=== PATIENT | female | born 1935 | race Caucasian/White ===

== ENCOUNTER 2017-01-16 18:08 | Emergency (ER) | payer MEDICARE, BC ==
[2017-01-16 20:24] VITALS: BP 128/61
[2017-01-16] MEDS ORDERED: cefTRIAXone 500 MG Vial IM ONE (21:09)
--- NOTE | 2017-01-16 21:19 | EDM.PDOC ---
ED HISTORY OF PRESENT ILLNESS - General Chief Complaint: Fever Stated Complaint: MED VIA AMBULANCE Time Seen by Provider: 01/16/17 18:08 Source: Reports: residential records History Limitations: Reports: No limitations - History of Present Illness INITIAL COMMENTS - FREE TEXT/NARRATIVE: History of present illness: [Patient is here from a retirement with a fever and little bit of a cough. She been started on Zithromax earlier today. She is pleasant and not very communicative. I suspect she has dementia.] Review of systems: As per history of present illness and below otherwise all systems reviewed and negative. Past medical history: As per history of present illness and as reviewed below otherwise noncontributory. Surgical history: As per history of present illness and as reviewed below otherwise noncontributory. Social history: No reported history of drug or alcohol abuse. Family history: As per history of present illness and as reviewed below otherwise noncontributory. Physical exam: HEENT: Atraumatic, normocephalic, pupils reactive, negative for conjunctival pallor or scleral icterus, mucous membranes moist, throat clear, neck supple, nontender, trachea midline. Lungs: Some dry crackles in the bases Heart: S1S2, regular, Abdomen: Soft, nondistended, nontender. Negative for masses or hepatosplenomegaly. Negative for costovertebral tenderness. Pelvis: Stable nontender. Genitourinary: Deferred. Rectal: Deferred. Extremities: Atraumatic, negative for cords or calf pain. Neurovascular unremarkable. Neuro: Awake, alert, Exam nonfocal. Diagnostics: [CBC complete metabolic panel UA lactic acid and CRP were done along with a chest x-ray. Most significant finding was positive UA. She had a slight elevation of her white count but her fever came down while she was here. Influenza A and B. along with rapid strep were negative. Chest x-ray did not demonstrate any clear infiltrates. She may have a borderline failure pattern on chest x-ray but she received fluids in the ambulance in route] Therapeutics: [Rocephin 1 g IM was provided] Impression: [UTI with possible upper tract involvement] Plan: [Cipro will be provided to 50 mg one by mouth daily for 7 days] Definitive disposition and diagnosis as appropriate pending reevaluation and review of above. - Related Data Allergies/ADRs: Allergies Allergy/AdvReac Type Severity Reaction Status Date / Time amoxicillin trihydrate Allergy Nausea Verified 01/16/17 18:52 [From Augmentin] potassium clavulanate Allergy Nausea Verified 01/16/17 18:52 [From Augmentin] Home Meds: Home Meds Donepezil HCl 10 mg PO DAILY 12/30/14 [History] Furosemide 20 mg PO DAILY 12/30/14 [History] Levothyroxine Sodium [Synthroid] 75 mcg PO DAILY 12/30/14 [History] Multivitamin with Minerals [Multiple Vitamin] 1 tab PO DAILY 12/30/14 [History] Simvastatin [Zocor] 40 mg PO DAILY 12/30/14 [History] Acetaminophen [Tylenol] 650 mg PO Q4H 01/16/17 [History] Azithromycin [Azithromycin] 250 mg PO DAILY 01/16/17 [History] Azithromycin [Zithromax] 500 mg PO Q24H 01/16/17 [History] Carboxymethylcell/Glycerin/Pf [Lubricant 0.5-0.9% Eye Drops] 1 each OP 01/16/17 [History] Loratadine [Loratadine] 10 mg PO ASDIRECTED PRN 01/16/17 [History] Magnesium Hydroxide [Milk of Magnesia] 30 ml PO DAILY PRN 01/16/17 [History] Pilocarpine HCl [Pilocarpine HCl] 10 mg PO TID 01/16/17 [History] Potassium Gluconate 99 mg PO 01/16/17 [History] Sennosides [Senna] 2 tab PO BID PRN 01/16/17 [History] Past Medical History HEENT History: Reports: Cataract Cardiovascular History: Reports: High cholesterol, Hypertension Respiratory History: Reports: Pneumonia, recurrent Gastrointestinal History: Reports: GERD 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 ED EXAM, GENERAL - Physical Exam Exam: See Below Course - Vital Signs Last Recorded V/S: Last Vital Signs Temp 37.1 C 01/16/17 20:24 Pulse 73 01/16/17 20:24 Resp 16 01/16/17 20:24 BP 128/61 01/16/17 20:24 Pulse Ox 92 L 01/16/17 20:24 - Orders/Labs/Meds Orders: Active Orders 24 hr Category Date Time Status Chest 1V Frontal [CR] Stat Exams 01/16/17 18:16 Taken CULTURE BLOOD [BC] Stat Lab 01/16/17 18:33 Received CULTURE BLOOD [BC] Stat Lab 01/16/17 18:43 Received CULTURE STREP A CONFIRMATION [RM] Stat Lab 01/16/17 19:12 Results CULTURE URINE [RM] Stat Lab 01/16/17 21:08 Ordered STREP SCRN A RAPID W CULT CONF [RM] Stat Lab 01/16/17 19:12 Results Labs: Laboratory Tests 01/16/17 01/16/17 01/16/17 Range/Units 18:33 18:43 18:43 WBC 13.7 H (4.5-11.0) K/uL RBC 4.55 (3.30-5.50) M/uL Hgb 13.6 (12.0-15.0) g/dL Hct 41.1 (36.0-48.0) % MCV 90 (80-98) fL MCH 30 (27-31) pg MCHC 33 (32-36) % Plt Count 109 L (150-400) K/uL Neut % (Auto) 79 H (36-66) % Lymph % (Auto) 15 L (24-44) % [place] % (Auto) 7 H (2-6) % Eos % (Auto) 0 L (2-4) % Baso % (Auto) 0 (0-1) % ABG Hemoglobin 13.6 (12.0-16.0) g/dL ABG Oxyhemoglobin 80.6 % ABG Carboxyhemoglobin 1.7 H (0.0-1.6) % ABG Methemoglobin 0.5 % VBG pH 7.504 H (7.350-7.450) VBG pCO2 28.9 mm/Hg VBG pO2 44.1 mm/Hg VBG HCO3 22.6 mmol/L VBG Total CO2 19.6 mmol/L VBG O2 Saturation 82.4 VBG O2 Content 15.4 %vol VBG Base Excess 0.8 mm/L O2 Delivery Device Room air Sodium 148 (140-148) mmol/L Potassium 3.4 L (3.6-5.2) mmol/L Chloride 114 H (100-108) mmol/L Carbon Dioxide 24 (21-32) mmol/L Anion Gap 13.4 (5.0-14.0) mmol/L BUN 28 H D (7-18) mg/dL Creatinine 0.9 (0.6-1.0) mg/dL Est Cr Clr Drug Dosing 40.90 mL/min Estimated GFR (MDRD) 60 (>60) Glucose 177 H (74-106) mg/dL Lactic Acid (0.4-2.0) mmol/L Calcium 8.6 (8.5-10.1) mg/dL Total Bilirubin 0.7 (0.2-1.0) mg/dL AST 26 (15-37) U/L ALT 22 (12-78) U/L Alkaline Phosphatase 109 (46-116) U/L C-Reactive Protein 24.14 H (0.0-0.3) mg/dL Total Protein 7.5 (6.4-8.2) g/dL Albumin 2.7 L (3.4-5.0) g/dL Globulin 4.8 H (2.3-3.5) g/dL Albumin/Globulin Ratio 0.6 L (1.2-2.2) TSH, Ultra Sensitive 2.108 (0.358-3.740) uIU/mL Urine Color Urine Appearance Urine pH (4.5-8.0) Ur Specific [place] (1.008-1.030) Urine Protein (NEGATIVE) mg/dL Urine Glucose (UA) (NEGATIVE) mg/dL Urine Ketones (NEGATIVE) mg/dL Urine Occult Blood (NEGATIVE) Urine Nitrite (NEGATIVE) Urine Bilirubin (NEGATIVE) Urine Urobilinogen (NORMAL) mg/dL Ur Leukocyte Esterase (NEGATIVE) Urine RBC (0-5) Urine WBC (0-5) Ur Epithelial Cells Amorphous Sediment Urine Bacteria Urine Mucus 01/16/17 01/16/17 Range/Units 18:43 20:24 WBC (4.5-11.0) K/uL RBC (3.30-5.50) M/uL Hgb (12.0-15.0) g/dL Hct (36.0-48.0) % MCV (80-98) fL MCH (27-31) pg MCHC (32-36) % Plt Count (150-400) K/uL Neut % (Auto) (36-66) % Lymph % (Auto) (24-44) % [place] % (Auto) (2-6) % Eos % (Auto) (2-4) % Baso % (Auto) (0-1) % ABG Hemoglobin (12.0-16.0) g/dL ABG Oxyhemoglobin % ABG Carboxyhemoglobin (0.0-1.6) % ABG Methemoglobin % VBG pH (7.350-7.450) VBG pCO2 mm/Hg VBG pO2 mm/Hg VBG HCO3 mmol/L VBG Total CO2 mmol/L VBG O2 Saturation VBG O2 Content %vol VBG Base Excess mm/L O2 Delivery Device Sodium (140-148) mmol/L Potassium (3.6-5.2) mmol/L Chloride (100-108) mmol/L Carbon Dioxide (21-32) mmol/L Anion Gap (5.0-14.0) mmol/L BUN (7-18) mg/dL Creatinine (0.6-1.0) mg/dL Est Cr Clr Drug Dosing mL/min Estimated GFR (MDRD) (>60) Glucose (74-106) mg/dL Lactic Acid 2.1 H (0.4-2.0) mmol/L Calcium (8.5-10.1) mg/dL Total Bilirubin (0.2-1.0) mg/dL AST (15-37) U/L ALT (12-78) U/L Alkaline Phosphatase (46-116) U/L C-Reactive Protein (0.0-0.3) mg/dL Total Protein (6.4-8.2) g/dL Albumin (3.4-5.0) g/dL Globulin (2.3-3.5) g/dL Albumin/Globulin Ratio (1.2-2.2) TSH, Ultra Sensitive (0.358-3.740) uIU/mL Urine Color Yellow Urine Appearance Clear Urine pH 7.0 (4.5-8.0) Ur Specific [place] 1.015 (1.008-1.030) Urine Protein Negative (NEGATIVE) mg/dL Urine Glucose (UA) Normal (NEGATIVE) mg/dL Urine Ketones Negative (NEGATIVE) mg/dL Urine Occult Blood Negative (NEGATIVE) Urine Nitrite Negative (NEGATIVE) Urine Bilirubin Negative (NEGATIVE) Urine Urobilinogen 1 (NORMAL) mg/dL Ur Leukocyte Esterase Moderate (NEGATIVE) Urine RBC 0-5 (0-5) Urine WBC 40-50 H (0-5) Ur Epithelial Cells Few Amorphous Sediment Few Urine Bacteria Many Urine Mucus Not seen Meds: Medications Discontinued Medications Generic Name Dose Route Start Last Admin Trade Name Freq PRN Reason Stop Dose Admin Ceftriaxone Sodium 1,000 mg 01/16/17 21:09 Rocephin IM 01/16/17 21:10 ONETIME ONE Departure - Departure Time of Disposition: 21:18 Disposition: Home, Self-Care 01 Condition: fair Clinical Impression: UTI (urinary tract infection) Qualifiers: Urinary tract infection type: acute pyelonephritis Qualified Code(s): N10 - Acute pyelonephritis Forms: ED Department Discharge Additional Instructions: Please contact her primary care provider in 2 or 3 days if she's not improving - My Orders Last 24 Hours: My Active Orders 01/16/17 18:16 Chest 1V Frontal [CR] Stat 01/16/17 18:33 CULTURE BLOOD [BC] Stat 01/16/17 18:43 CULTURE BLOOD [BC] Stat 01/16/17 19:12 CULTURE STREP A CONFIRMATION [RM] Stat STREP SCRN A RAPID W CULT CONF [RM] Stat 01/16/17 21:08 CULTURE URINE [RM] Stat - Assessment/Plan Last 24 Hours: My Active Orders 01/16/17 18:16 Chest 1V Frontal [CR] Stat 01/16/17 18:33 CULTURE BLOOD [BC] Stat 01/16/17 18:43 CULTURE BLOOD [BC] Stat 01/16/17 19:12 CULTURE STREP A CONFIRMATION [RM] Stat STREP SCRN A RAPID W CULT CONF [RM] Stat 01/16/17 21:08 CULTURE URINE [RM] Stat
--- NOTE | 2017-01-17 08:48 | CR ---
Chest 1V Frontal HISTORY: cough and fever COMPARISON: 10/30/2015, 12/26/2014 FINDINGS: Lungs appear clear and normally aerated. Slight interstitial prominence is similar to prior exams. C ardiomediastinal silhouette is within normal limits. No vascular redistribution or pleural fluid can be seen. Bony structures are osteopenic. IMPRESSION: No acute chest abnormality or significant interval change is identified.
== END 2017-01-16 21:45 | disposition home or self-care (01) ==
LOC: JP.ED 18:08
DX: N10 Acute pyelonephritis (principal); I10 Essential (primary) hypertension; E78.00 Pure hypercholesterolemia, unspecified; K21.9 Gastro-esophageal reflux disease without esophagitis; E11.9 Type 2 diabetes mellitus without complications; G30.9 Alzheimer's disease, unspecified; Z79.899 Other long term (current) drug therapy; Z88.1 Allergy status to other antibiotic agents
CPT/HCPCS: 36415; 71010; 80053; 81001; 82803; 83605; 84443; 85025; 86140; 87040; 87081; 87086; 87088; 87430; 87804; 96372; 99283; 99285; J0696

== ENCOUNTER 2018-01-09 11:49 | Inpatient (IN) | payer MEDICARE, BC ==
--- NOTE | 2018-01-09 12:04 | EDM.PDOC ---
ED HPI GENERAL MEDICAL PROBLEM - General Chief Complaint: Cardiovascular Problem Stated Complaint: FALL VIA [facility] / [facility] Time Seen by Provider: 01/09/18 11:50 Source of Information: Reports: EMS, Old Records, RN History Limitations: Reports: Other (dementia) - History of Present Illness INITIAL COMMENTS - FREE TEXT/NARRATIVE: 82 yo female was transported via EMS for a fall at her [facility] that was not witnessed. Initially complained of hip pain, but not anymore. Later en route complained of neck pain so a C-collar was applied. Here in the ER she does not remember falling. She has a pHx of significant dementia. EMS noted a normal BS of 140. EMS also noted a HR of about 40. No anticoagulants noted on med list. Old records suggest her normal HR is about 60/min. Onset: Today Onset Date: 01/09/18 Onset Time: 11:00 (estimated fall time) Duration: Minutes:, Constant Location: Reports: Neck (pain reported to EMS), Chest (No chest pain reported, but does have significant bradycardia.) Severity: Moderate Improves with: Reports: None (bradycardia), Movement (neck pain) Worsens with: Reports: Immobilization (neck pain) Associated Symptoms: Reports: Nausea/Vomiting (Emesis x one since fall, denies nausea now in ER. ). Denies: Fever/Chills, Headaches Treatments DRAFTER CASTINGS: Reports: Other (see below) (none) - Related Data Allergies Allergy/AdvReac Type Severity Reaction Status Date / Time amoxicillin trihydrate Allergy Nausea Verified 01/16/17 18:52 [From Augmentin] potassium clavulanate Allergy Nausea Verified 01/16/17 18:52 [From Augmentin] Home Meds: Home Meds Levothyroxine Sodium [Synthroid] 75 mcg PO DAILY 12/30/14 [History] Acetaminophen [Tylenol] 650 mg PO Q4H 01/16/17 [History] Sennosides [Senna] 2 tab PO BID PRN 01/16/17 [History] Past Medical History HEENT History: Reports: Cataract Cardiovascular History: Reports: High Cholesterol, Hypertension Respiratory History: Reports: Pneumonia, Recurrent Gastrointestinal History: Reports: 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: Neurological History: Reports: Alzheimers Disease Endocrine/Metabolic History: Reports: Diabetes, Type II Hematologic History: Reports: Anemia Social & Family History - Tobacco Use Smoking Status *Q: Never Smoker Second Hand Smoke Exposure: No - Alcohol Use Days Per Week of Alcohol Use: 0 - Recreational Drug Use Recreational Drug Use: No ED ROS GENERAL - Review of Systems Review Of Systems: See Below Constitutional: Reports: No Symptoms HEENT: Reports: No Symptoms Respiratory: Reports: No Symptoms Cardiovascular: Reports: No Symptoms GI/Abdominal: Reports: Nausea (not now), Vomiting (not now) : Reports: No Symptoms Musculoskeletal: Reports: Neck Pain (reported to EMS) Skin: Reports: No Symptoms Neurological: Reports: Confusion (chronic, dementia history.). Denies: Headache (denies) Psychiatric: Reports: No Symptoms ED EXAM, GENERAL - Physical Exam Exam: See Below Exam Limited By: No Limitations General Appearance: Alert, WD/WN, No Apparent Distress, Other (no visible scalp injuries) Eye Exam: Bilateral Eye: EOMI, Normal Inspection, PERRL Ears: Normal External Exam, Normal Canal, Hearing Grossly Normal, Normal TMs Ear Exam: Bilateral Ear: Auricle Normal, Canal Normal, TM normal Nose: Normal Inspection, Normal Mucosa, No Blood Throat/Mouth: Normal Inspection, Normal Lips, Normal Oropharynx, Normal Voice, No Airway Compromise Head: Atraumatic, Normocephalic Neck: Other (Hard C-collar in place on arrival. This was left on until her scan. ) Respiratory/Chest: No Respiratory Distress, Lungs Clear, Normal Breath Sounds, No Accessory Muscle Use Cardiovascular: Regular Rate, Rhythm, No Edema, Bradycardia GI/Abdominal: Normal Bowel Sounds, Soft, Non-Tender, No Distention Extremities: Normal Inspection, Normal Range of Motion, Non-Tender, No Pedal Edema Neurological: Alert, CN II-XII Intact, No Motor/Sensory Deficits, Confused ( chronic, has dementia) Psychiatric: Normal Affect, Normal Mood Skin Exam: Warm, Dry, Intact, Normal Color, No Rash Lymphatic: No Adenopathy EKG INTERPRETATION EKG Date: 01/09/18 Time: 12:15 Rhythm: NSR Rate (Beats/Min): 37 [place]: LAD-Left [place] Deviation P-Wave: Present QRS: Normal ST-T: Normal QT: Normal Comparison: NA - No Prior EKG Course - Vital Signs Text/Narrative:: Dr. Choi contacted regarding need or pacemaker/admission @ 1316h. HR judy to a normal range after a 3rd IV dose of atropine 0.5 mg Last Recorded V/S: Last Vital Signs Temp 36.9 C 01/09/18 16:00 Pulse 52 L 01/09/18 17:39 Resp 20 01/09/18 17:39 BP 133/69 01/09/18 17:39 Pulse Ox 100 01/09/18 17:39 - Orders/Labs/Meds Orders: Active Orders 24 hr Category Date Time Status Oxygen Therapy Adult [Oxygen Therapy, ED] [RC] Care 01/09/18 12:34 Inactive ASDIRECTED UA W/MICROSCOPIC [URIN] Stat Lab 01/09/18 11:51 Ordered EKG 12 Lead [EK] Routine Ther 01/09/18 11:56 Stop Req EKG 12 Lead [EK] Routine Ther 01/09/18 13:52 Stop Req Medication Orders Acetaminophen (Tylenol) 650 mg PO QID MERA Last Admin: 01/09/18 16:08 Dose: 650 mg Levothyroxine Sodium (Levothyroxine) 75 mcg PO DAILY@0730 [facility] Melatonin (Melatonin) 9 mg PO BEDTIME [facility] Ondansetron HCl (Zofran Odt) 4 mg PO Q6H PRN PRN Reason: Nausea able to take PO Polyethylene Glycol (Miralax) 17 gm PO DAILY PRN PRN Reason: Constipation Senna (Senna) 17.2 mg PO BID PRN PRN Reason: Constipation Labs: Laboratory Tests 01/09/18 01/09/18 01/09/18 Range/Units 12:05 12:05 13:30 WBC 5.3 (4.5-11.0) K/uL RBC 4.55 (3.30-5.50) M/uL Hgb 13.8 (12.0-15.0) g/dL Hct 42.7 (36.0-48.0) % MCV 94 (80-98) fL MCH 30 (27-31) pg MCHC 32 (32-36) % Plt Count 117 L (150-400) K/uL Sodium 133 L (140-148) mmol/L Potassium 3.7 (3.6-5.2) mmol/L Chloride 105 (100-108) mmol/L Carbon Dioxide 25 (21-32) mmol/L Anion Gap 6.7 (5.0-14.0) mmol/L BUN 22 H (7-18) mg/dL Creatinine 0.7 (0.6-1.0) mg/dL Est Cr Clr Drug Dosing TNP Estimated GFR (MDRD) > 60 (>60) Glucose 121 H (74-106) mg/dL Calcium 8.8 (8.5-10.1) mg/dL Troponin I 0.018 < 0.017 (0.000-0.056) ng/mL TSH, Ultra Sensitive (0.358-3.740) uIU/mL 01/09/18 Range/Units 13:35 WBC (4.5-11.0) K/uL RBC (3.30-5.50) M/uL Hgb (12.0-15.0) g/dL Hct (36.0-48.0) % MCV (80-98) fL MCH (27-31) pg MCHC (32-36) % Plt Count (150-400) K/uL Sodium (140-148) mmol/L Potassium (3.6-5.2) mmol/L Chloride (100-108) mmol/L Carbon Dioxide (21-32) mmol/L Anion Gap (5.0-14.0) mmol/L BUN (7-18) mg/dL Creatinine (0.6-1.0) mg/dL Est Cr Clr Drug Dosing Estimated GFR (MDRD) (>60) Glucose (74-106) mg/dL Calcium (8.5-10.1) mg/dL Troponin I (0.000-0.056) ng/mL TSH, Ultra Sensitive 4.211 H (0.358-3.740) uIU/mL Meds: Medications Generic Name Dose Route Start Last Admin Trade Name Yg PRN Reason Stop Dose Admin Acetaminophen 650 mg 01/09/18 16:00 01/09/18 16:08 Tylenol PO 650 mg QID MERA Administration Levothyroxine Sodium 75 mcg 01/10/18 07:30 Levothyroxine PO DAILY@0730 [facility] Melatonin 9 mg 01/09/18 21:00 Melatonin PO BEDTIME [facility] Ondansetron HCl 4 mg 01/09/18 15:27 Zofran Odt PO Q6H PRN Nausea able to take PO Polyethylene Glycol 17 gm 01/09/18 15:27 Miralax PO DAILY PRN Constipation Senna 17.2 mg 01/09/18 15:27 Senna PO BID PRN Constipation Discontinued Medications Generic Name Dose Route Start Last Admin Trade Name Yg PRN Reason Stop Dose Admin Atropine Sulfate 0.5 mg 01/09/18 12:33 01/09/18 12:46 Atropine 0.1 Mg/Ml IVPUSH 01/09/18 12:34 0.5 mg ONETIME ONE Administration Atropine Sulfate 0.5 mg 01/09/18 12:49 01/09/18 12:53 Atropine 0.1 Mg/Ml IVPUSH 01/09/18 12:50 0.5 mg ONETIME ONE Administration Atropine Sulfate 0.5 mg 01/09/18 13:01 01/09/18 13:09 Atropine 0.1 Mg/Ml IVPUSH 01/09/18 13:02 0.5 mg ONETIME ONE Administration Lactated Ringer's 1,000 mls @ 100 mls/hr 01/09/18 12:45 01/09/18 12:46 Ringers, Lactated IV 100 mls/hr ASDIRECTED MERA Administration - Radiology Interpretation Free Text/Narrative:: Head CT scan-negative cervical spine CT scan-No def'n acute findings per radiology. CT Results Date: 01/09/18 CT Results Time: 13:04 Departure - Departure Time of Disposition: 13:45 Disposition: Admitted As Inpatient 64 Condition: Fair Clinical Impression: Bradycardia, Fall in elderly patient Dementia Qualifiers: Dementia type: unspecified type Dementia behavioral disturbance: without behavioral disturbance Qualified Code(s): F03.90 - Unspecified dementia without behavioral disturbance - My Orders Last 24 Hours: My Active Orders 01/09/18 11:51 UA W/MICROSCOPIC [URIN] Stat 01/09/18 11:56 EKG 12 Lead [EK] Routine 01/09/18 12:34 Oxygen Therapy Adult [Oxygen Therapy, ED] [] ASDIRECTED 01/09/18 13:52 EKG 12 Lead [EK] Routine - Assessment/Plan Last 24 Hours: My Active Orders 01/09/18 11:51 UA W/MICROSCOPIC [URIN] Stat 01/09/18 11:56 EKG 12 Lead [EK] Routine 01/09/18 12:34 Oxygen Therapy Adult [Oxygen Therapy, ED] [] ASDIRECTED 01/09/18 13:52 EKG 12 Lead [EK] Routine
[2018-01-09] MEDS ORDERED: Atropine 0.1 MG/ML 10 ML Syringe IVPUSH ONE ×3 (12:33→13:01)
[2018-01-09] MEDS ORDERED: Lactated Ringers 1,000 ML IV SCH (12:45)
--- NOTE | 2018-01-09 13:00 | CT ---
CT head without contrast. Indication: Fall. Total DLP 987 Findings: Moderate global atrophy. Centralized atrophy. 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 Calvarium is intact. Impression: 1. Chronic changes without acute intracranial process by CT
--- NOTE | 2018-01-09 13:12 | CT ---
CT cervical spine. Total DLP 987. Findings: Accentuated lordotic curve. Multilevel facet arthropathy. Vertebral body heights are mainta ined. There is a mild superior endplate compression deformity at the T2 vertebral body. No lucency ab out it. Would favor this to be remote. No acute alignment abnormality. No pneumothorax. Impression: 1. No acute osseous abnormality within the cervical spine.
--- NOTE | 2018-01-09 14:12 | PCM.HP ---
H&P History of Present Illness - General Date of Service: 01/09/18 Admit Problem/Dx: Admission Diagnosis/Problem Admission Diagnosis/Problem Symptomatic bradycardia Source of Information: Family, Provider. No: Patient History Limitations: Reports: No Limitations - History of Present Illness Initial Comments - Free Text/Narative: Marielena presented to the ER by ambulance. She has severe dementia and is unable to provide any information. Her provides some of the recent history. Per report from ER staff she fell at the half-way this morning. The fall was not witnessed but it was suspected that she was ambulating on her own which has been quite difficult for her recently. No obvious injury and initially no complaints but upon arrival to the ER she was mentioning some neck pain. Her reports nothing out of the ordinary has been noted at the half-way. She has not provided any specific complaints recently. No fevers have been noted at the half-way. While in the emergency room she has been noted to be bradycardic with heart rates as low as the mid 30s. She has received 3 doses of 0.5 mg of atropine with temporary improvement in her heart rate to the 60s. Heart rate has slowly drifted down since that time. Laboratory studies have been obtained and are unremarkable. Initial EKG showed sinus bradycardia but telemetry monitoring is more consistent with a complete heart block. She will be admitted for further management and likely pacemaker insertion. - Related Data Allergies/Adverse Reactions: Allergies Allergy/AdvReac Type Severity Reaction Status Date / Time amoxicillin trihydrate Allergy Nausea Verified 01/16/17 18:52 [From Augmentin] potassium clavulanate Allergy Nausea Verified 01/16/17 18:52 [From Augmentin] Home Medications: Home Meds Levothyroxine Sodium [Synthroid] 75 mcg PO DAILY 12/30/14 [History] Acetaminophen [Tylenol] 650 mg PO Q4H 01/16/17 [History] Sennosides [Senna] 2 tab PO BID PRN 01/16/17 [History] Past Medical History HEENT History: Reports: Cataract Cardiovascular History: Reports: High Cholesterol, Hypertension Respiratory History: Reports: Pneumonia, Recurrent Gastrointestinal History: Reports: GERD [employer] 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: Neurological History: Reports: Alzheimers Disease Endocrine/Metabolic History: Reports: Diabetes, Type II Hematologic History: Reports: Anemia Social & Family History - Family History Family Medical History: Unobtainable (pt with severe dementia) - Tobacco Use Smoking Status *Q: Never Smoker Second Hand Smoke Exposure: No - Alcohol Use Days Per Week of Alcohol Use: 0 - Recreational Drug Use Recreational Drug Use: No H&P Review of Systems - Review of Systems: Review Of Systems: Unable To Obtain Free Text/Narrative: Pt has severe dementia Exam - Exam Exam: See Below - Vital Signs Vital Signs: Last Vital Signs Temp 35.7 C 01/09/18 12:33 Pulse 40 L 01/09/18 12:33 Resp 14 01/09/18 12:33 BP 135/76 01/09/18 12:33 Pulse Ox 97 01/09/18 12:33 - Exam Quality Assessment: No: Supplemental Oxygen General: Alert, Cooperative. No: Oriented, Mild Distress HEENT: Conjunctiva Clear. No: Mucosa Moist & [place] (dry), Scleral Icterus Neck: Supple, Trachea Midline, Lymphadenopathy Lungs: Clear to Auscultation, Normal Respiratory Effort Cardiovascular: Regular Rhythm, Bradycardia. No: Systolic Murmur GI/Abdominal Exam: Normal Bowel Sounds, Soft, Non-Tender, No Distention Back Exam: Normal Inspection. No: Full Range of Motion Extremities: No Pedal Edema. No: Increased Warmth Peripheral Pulses: 1+: Dorsalis Pedis (L), Dorsalis Pedis (R) Skin: Warm, Dry Neuro Extensive - Mental Status: Alert, Slow Response to Commands. No: Oriented x3 Neuro Extensive - Motor, Sensory, Reflexes: CN II-XII Intact. No: Dysarthria, Abnormal Motor Psychiatric: Alert, Normal Affect - Patient Data Lab Results Last 24 hrs: Laboratory Results - last 24 hr 01/09/18 01/09/18 01/09/18 Range/Units 12:05 12:05 13:30 WBC 5.3 (4.5-11.0) K/uL RBC 4.55 (3.30-5.50) M/uL Hgb 13.8 (12.0-15.0) g/dL Hct 42.7 (36.0-48.0) % MCV 94 (80-98) fL MCH 30 (27-31) pg MCHC 32 (32-36) % Plt Count 117 L (150-400) K/uL Sodium 133 L (140-148) mmol/L Potassium 3.7 (3.6-5.2) mmol/L Chloride 105 (100-108) mmol/L Carbon Dioxide 25 (21-32) mmol/L Anion Gap 6.7 (5.0-14.0) mmol/L BUN 22 H (7-18) mg/dL Creatinine 0.7 (0.6-1.0) mg/dL Est Cr Clr Drug Dosing TNP Estimated GFR (MDRD) > 60 (>60) Glucose 121 H (74-106) mg/dL Calcium 8.8 (8.5-10.1) mg/dL Troponin I 0.018 < 0.017 (0.000-0.056) ng/mL TSH, Ultra Sensitive (0.358-3.740) uIU/mL 01/09/18 Range/Units 13:35 WBC (4.5-11.0) K/uL RBC (3.30-5.50) M/uL Hgb (12.0-15.0) g/dL Hct (36.0-48.0) % MCV (80-98) fL MCH (27-31) pg MCHC (32-36) % Plt Count (150-400) K/uL Sodium (140-148) mmol/L Potassium (3.6-5.2) mmol/L Chloride (100-108) mmol/L Carbon Dioxide (21-32) mmol/L Anion Gap (5.0-14.0) mmol/L BUN (7-18) mg/dL Creatinine (0.6-1.0) mg/dL Est Cr Clr Drug Dosing Estimated GFR (MDRD) (>60) Glucose (74-106) mg/dL Calcium (8.5-10.1) mg/dL Troponin I (0.000-0.056) ng/mL TSH, Ultra Sensitive 4.211 H (0.358-3.740) uIU/mL Result Diagrams: 01/09/18 12:05 01/09/18 12:05 EKG INTERPRETATION EKG Date: 01/09/18 Rhythm: Other (sinus bradycardia) [place]: Normal P-Wave: Present QRS: Normal ST-T: Normal QT: Normal Comparison: NA - No Prior EKG EKG Interpretation Comments: EKG images were both personally reviewed *Q Meaningful Use (ADM) - VTE Risk Assess *Q Each Risk Factor Represents 1 Point: Minor Surgery Planned Total Score 1 Point Risk Factors: 1 Each Risk Factor Represents 2 Points: None Total Score 2 Point Risk Factors: 0 Each Risk Factor Represents 3 Points: Age 75 Years or Greater Total Score 3 Point Risk Factors: 3 Each Risk Factor Represents 5 Points: None Total Score 5 Point Risk Factors: 0 Venous Thromboembolism Risk Factor Score *Q: 4 - Problem List (1) Symptomatic bradycardia SNOMED Code(s): 27630720, 211596970 ICD Code: R00.1 - BRADYCARDIA, UNSPECIFIED Status: Acute Current Visit: Yes (2) Fall in elderly patient SNOMED Code(s): 485085366 ICD Code: R29.6 - REPEATED FALLS Status: Acute Current Visit: Yes (3) Alzheimer's dementia without behavioral disturbance SNOMED Code(s): 50713375 ICD Code: G30.9 - ALZHEIMER'S DISEASE, UNSPECIFIED; F02.80 - DEMENTIA IN OTH DISEASES CLASSD ELSWHR W/O BEHAVRL DISTURB Status: Chronic Current Visit: Yes Qualifiers: Alzheimer's disease onset: late-onset Qualified Code(s): G30.1 - Alzheimer' s disease with late onset; F02.80 - Dementia in other diseases classified elsewhere without behavioral disturbance Problem List Initiated/Reviewed/Updated: Yes Orders Last 24hrs: Active Orders 24 hr Category Date Time Status Patient Status Manage Transfer [TRANSFER] Routine ADT 01/09/18 13:54 Ordered Cardiac Monitoring [RC] .As Directed Care 01/09/18 11:56 Active EKG Documentation Completion [RC] ASDIRECTED Care 01/09/18 11:56 Active EKG Documentation Completion [RC] ASDIRECTED Care 01/09/18 13:53 Active Oxygen Therapy Adult [Oxygen Therapy, ED] [RC] Care 01/09/18 12:34 Active ASDIRECTED UA W/MICROSCOPIC [URIN] Stat Lab 01/09/18 11:51 Ordered Lactated Ringers [Ringers, Lactated] 1,000 ml Med 01/09/18 12:45 Active IV ASDIRECTED Resuscitation Status Routine Resus Stat 01/09/18 13:56 Ordered EKG 12 Lead [EK] Routine Ther 01/09/18 11:56 Ordered EKG 12 Lead [EK] Routine Ther 01/09/18 13:52 Ordered Medication Orders Lactated Ringer's (Ringers, Lactated) 1,000 mls @ 100 mls/hr IV ASDIRECTED [facility] Last Admin: 01/09/18 12:46 Dose: 100 mls/hr Assessment/Plan Comment:: ASSESSMENT AND PLAN - Symptomatically bradycardia - patient had a fall today that seems like it would be consistent with syncope in the setting of bradycardia. She does have a history of bradycardia in the past and previously the family has not wanted her to have a pacemaker but now seem to be onboard with pacemaker insertion hoping that it would give her improved quality of life and decrease her frequency of falls. She seems like an appropriate candidate for pacemaker insertion. She's not on any anticoagulation at this time. The case has been discussed with Dr. Sharp and the tentative plan is for pacemaker insertion tomorrow morning. -Cardiac monitoring -Bedrest -Tentative plan is for pacemaker insertion tomorrow Frequent falls - unclear if related to deconditioning or if bradycardia has been contributing or a combination. She will need physical therapy evaluation once her heart rate has stabilized. -Physical therapy, likely on Friday Late onset Alzheimer's dementia - no behavior issues at this time but significant memory impairment. Currently residing at the half-way. -Melatonin at bedtime -Consider Haldol if behavior issues Maintenance issues - - DVT prophylaxis - mechanical with upcoming surgery - GI prophylaxis - not indicated - Nutrition - mechanical soft diet, nothing by mouth after midnight - Cisneros catheter - not indicated CODE STATUS - DNR/DNI Admission justification - This patient will be admitted for inpatient services and is medically appropriate meeting medical necessity for inpatient admission as outlined in my documentation. I reasonably expect the patient will require inpatient services that span a period time over 2 midnights. I reasonably expect this patient to be discharged or transferred within 96 hours [facility]. Disposition - anticipate discharge back to the half-way after the hospital stay Primary care physician - Dr Theresa Choi M.D.
[2018-01-09] MEDS ORDERED: Ondansetron 4 MG Tab.DIS PO PRN (15:27)
[2018-01-09] MEDS ORDERED: Sennosides 8.6 MG Tab PO PRN (15:27)
[2018-01-09] MEDS ORDERED: Polyethylene Glycol 3350 Powder 17 GM Packet PO PRN (15:27)
[2018-01-09] MEDS: Acetaminophen 325 MG Tab PO SCH ×2 (16:08→21:50)
[2018-01-09] MEDS ORDERED: Melatonin 3 MG Tab PO SCH (21:00)
[2018-01-10] MEDS: Acetaminophen 325 MG Tab PO SCH (06:28)
[2018-01-10] MEDS ORDERED: Levothyroxine 75 MCG Tab PO SCH (07:30)
[2018-01-10 08:01] VITALS: BP 102/49
--- NOTE | 2018-01-10 09:06 | PCM.PN ---
- General Info Date of Service: 01/10/18 Functional Status: Reports: Pain Controlled - Review of Systems Systems Review Comment:: No acute events overnight. Heart rate has been in the 30's and low 40's overnight. Blood pressures have been on the low side of normal. Oxygenation has been normal without supplemental oxygen. Patient has been very sleepy. She does not provide history this morning. - Patient Data Vitals - Most Recent: Last Vital Signs Temp 36.9 C 01/10/18 07:59 Pulse 38 L 01/10/18 07:59 Resp 20 01/10/18 07:59 BP 102/49 L 01/10/18 07:59 Pulse Ox 96 01/10/18 07:59 Weight - Most Recent: 58.684 kg I&O - Last 24 Hours: Intake & Output 01/09/18 01/10/18 01/10/18 22:59 06:59 14:59 Intake Total 380 Balance 380 Lab Results Last 24 Hours: Laboratory Results - last 24 hr 01/09/18 01/09/18 01/09/18 Range/Units 12:05 12:05 13:30 WBC 5.3 (4.5-11.0) K/uL RBC 4.55 (3.30-5.50) M/uL Hgb 13.8 (12.0-15.0) g/dL Hct 42.7 (36.0-48.0) % MCV 94 (80-98) fL MCH 30 (27-31) pg MCHC 32 (32-36) % Plt Count 117 L (150-400) K/uL Sodium 133 L (140-148) mmol/L Potassium 3.7 (3.6-5.2) mmol/L Chloride 105 (100-108) mmol/L Carbon Dioxide 25 (21-32) mmol/L Anion Gap 6.7 (5.0-14.0) mmol/L BUN 22 H (7-18) mg/dL Creatinine 0.7 (0.6-1.0) mg/dL Est Cr Clr Drug Dosing TNP Estimated GFR (MDRD) > 60 (>60) Glucose 121 H (74-106) mg/dL Calcium 8.8 (8.5-10.1) mg/dL Troponin I 0.018 < 0.017 (0.000-0.056) ng/mL Free T4 (0.76-1.46) ng/dL TSH, Ultra Sensitive (0.358-3.740) uIU/mL 01/09/18 01/09/18 01/10/18 Range/Units 13:35 15:25 04:56 WBC 7.6 (4.5-11.0) K/uL RBC 4.28 (3.30-5.50) M/uL Hgb 13.0 (12.0-15.0) g/dL Hct 39.8 (36.0-48.0) % MCV 93 (80-98) fL MCH 30 (27-31) pg MCHC 33 (32-36) % Plt Count 121 L (150-400) K/uL Sodium (140-148) mmol/L Potassium (3.6-5.2) mmol/L Chloride (100-108) mmol/L Carbon Dioxide (21-32) mmol/L Anion Gap (5.0-14.0) mmol/L BUN (7-18) mg/dL Creatinine (0.6-1.0) mg/dL Est Cr Clr Drug Dosing Estimated GFR (MDRD) (>60) Glucose (74-106) mg/dL Calcium (8.5-10.1) mg/dL Troponin I (0.000-0.056) ng/mL Free T4 1.10 (0.76-1.46) ng/dL TSH, Ultra Sensitive 4.211 H (0.358-3.740) uIU/mL 01/10/18 Range/Units 04:56 WBC (4.5-11.0) K/uL RBC (3.30-5.50) M/uL Hgb (12.0-15.0) g/dL Hct (36.0-48.0) % MCV (80-98) fL MCH (27-31) pg MCHC (32-36) % Plt Count (150-400) K/uL Sodium 138 L (140-148) mmol/L Potassium 4.2 (3.6-5.2) mmol/L Chloride 107 (100-108) mmol/L Carbon Dioxide 25 (21-32) mmol/L Anion Gap 10.2 (5.0-14.0) mmol/L BUN 17 (7-18) mg/dL Creatinine 0.8 (0.6-1.0) mg/dL Est Cr Clr Drug Dosing 43.30 Estimated GFR (MDRD) > 60 (>60) Glucose 100 (74-106) mg/dL Calcium 8.8 (8.5-10.1) mg/dL Troponin I (0.000-0.056) ng/mL Free T4 (0.76-1.46) ng/dL TSH, Ultra Sensitive (0.358-3.740) uIU/mL Med Orders - Current: Current Medications Acetaminophen (Tylenol) 650 mg PO QID [facility] Last Admin: 01/10/18 06:28 Dose: Not Given Levothyroxine Sodium (Levothyroxine) 75 mcg PO DAILY@0730 [facility] Melatonin (Melatonin) 9 mg PO BEDTIME [facility] Last Admin: 01/09/18 20:25 Dose: 9 mg Ondansetron HCl (Zofran Odt) 4 mg PO Q6H PRN PRN Reason: Nausea able to take PO Polyethylene Glycol (Miralax) 17 gm PO DAILY PRN PRN Reason: Constipation Senna (Senna) 17.2 mg PO BID PRN PRN Reason: Constipation Discontinued Medications Atropine Sulfate (Atropine 0.1 Mg/Ml) 0.5 mg IVPUSH ONETIME ONE Stop: 01/09/18 12:34 Last Admin: 01/09/18 12:46 Dose: 0.5 mg Atropine Sulfate (Atropine 0.1 Mg/Ml) 0.5 mg IVPUSH ONETIME ONE Stop: 01/09/18 12:50 Last Admin: 01/09/18 12:53 Dose: 0.5 mg Atropine Sulfate (Atropine 0.1 Mg/Ml) 0.5 mg IVPUSH ONETIME ONE Stop: 01/09/18 13:02 Last Admin: 01/09/18 13:09 Dose: 0.5 mg Lactated Ringer's (Ringers, Lactated) 1,000 mls @ 100 mls/hr IV ASDIRECTED [facility] Last Admin: 01/09/18 12:46 Dose: 100 mls/hr - Exam Quality Assessment: No: Supplemental Oxygen General: Alert, Cooperative, No Acute Distress Lungs: Normal Respiratory Effort Cardiovascular: Regular Rhythm, Bradycardia GI/Abdominal Exam: No Distention Extremities: No Pedal Edema Psy/Mental Status: Alert. No: Anxious - Problem List & Annotations (1) Symptomatic bradycardia SNOMED Code(s): 33765541, 383413971 Code(s): R00.1 - BRADYCARDIA, UNSPECIFIED Status: Acute Current Visit: Yes (2) Fall in elderly patient SNOMED Code(s): 543401697 Code(s): R29.6 - REPEATED FALLS Status: Acute Current Visit: Yes (3) Alzheimer's dementia without behavioral disturbance SNOMED Code(s): 07440750 Code(s): G30.9 - ALZHEIMER'S DISEASE, UNSPECIFIED; F02.80 - DEMENTIA IN OTH DISEASES CLASSD ELSWHR W/O BEHAVRL DISTURB Status: Chronic Current Visit: Yes Qualifiers: Alzheimer's disease onset: late-onset Qualified Code(s): G30.1 - Alzheimer' s disease with late onset; F02.80 - Dementia in other diseases classified elsewhere without behavioral disturbance - Problem List Review Problem List Initiated/Reviewed/Updated: Yes - My Orders Last 24 Hours: My Active Orders 01/09/18 13:56 Resuscitation Status Routine 01/09/18 15:27 Patient Status [ADT] Routine Bedrest Bedside Commode [RC] ASDIRECTED Cardiac Monitoring [RC] CONTINUOUS Notify Provider Consults [RC] ASDIRECTED Notify Provider Vital Signs [RC] ASDIRECTED Oxygen Therapy [RC] PRN Up With Assistance [RC] ASDIRECTED VTE/DVT Education [RC] Per Unit Routine Vital Signs [RC] Q2HR Consult to Physician [CONS] Routine Ondansetron [Zofran ODT] 4 mg PO Q6H PRN Polyethylene Glycol 3350 [MiraLAX] 17 gm PO DAILY PRN Sennosides [Senna] 17.2 mg PO BID PRN Sequential Compression Device [OM.PC] Per Unit Routine VTE Pharmacological Contraindications [AST] Per Unit Routine 01/09/18 16:00 Acetaminophen [Tylenol] 650 mg PO QID 01/09/18 21:00 Melatonin 9 mg PO BEDTIME 01/09/18 Dinner Mechanical Soft Diet [DIET] 01/10/18 07:30 Levothyroxine 75 mcg PO DAILY@0730 01/10/18 09:02 RED BLOOD CELLS LP [BBK] Routine TYPE AND SCREEN [BBK] Routine 01/10/18 Breakfast Nothing per Oral After Midnight Diet [DIET] - Plan Plan:: ASSESSMENT AND PLAN - Symptomatically bradycardia with sick sinus syndrome - heart rate in the 30s all night. Patient very lethargic when her heart rate is slow. She was more alert yesterday when her heart rate was in the 60s. Long-standing issues with bradycardia with progressive symptoms and progressive decrease in heart rate. We have discussed the potential risks and potential benefits of the procedure and at this time the benefits seem to outweigh the risks. Family is on board with pacemaker insertion. I believe she is appropriate surgical candidate. -Continue Cardiac monitoring -Bedrest -Pacemaker insertion with Dr. Sharp this morning -2 units of blood have been typed and crossed Frequent falls - unclear if related to deconditioning or if bradycardia has been contributing or a combination. She will need physical therapy evaluation once her heart rate has stabilized. -Physical therapy on Friday Late onset Alzheimer's dementia - no behavior issues at this time but significant memory impairment. Currently residing at the half-way. -Melatonin at bedtime -Consider Haldol if behavior issues Maintenance issues - - DVT prophylaxis - mechanical with upcoming surgery - GI prophylaxis - not indicated - Nutrition - mechanical soft diet, nothing by mouth after midnight Disposition - anticipate discharge back to the half-way after the hospital stay Josh Choi M.D.
[2018-01-10] MEDS ORDERED: Lidocaine 1% with EPINEPHrine 1:100,000 50 ML MDV ONE (09:31)
[2018-01-10] MEDS ORDERED: Bupivacaine 0.5% 50 ML MDV ONE (09:31)
[2018-01-10] MEDS ORDERED: Propofol 200 MG/20 ML SDV ONE (09:41)
[2018-01-10] MEDS ORDERED: fentaNYL 100 MCG/2 ML SDV ONE (09:41)
[2018-01-10] MEDS ORDERED: ceFAZolin 1 GM Vial ONE (10:22)
[2018-01-10] MEDS ORDERED: Sodium Chloride 0.9% 500 ML ONE (11:23)
[2018-01-10] MEDS ORDERED: ePHEDrine 50 MG/ML SDV ONE (11:39)
[2018-01-10] MEDS ORDERED: Sodium Chloride 0.9% 1,000 ML IV SCH (12:30)
--- NOTE | 2018-01-10 12:48 | PCM.DCSUM1 ---
Discharge Summary - Discharge Data Discharge Date: 01/10/18 Discharge Disposition: DC/Tfer to Acute Hospital 02 Condition: Stable - Discharge Diagnosis/Problem(s) (1) Symptomatic bradycardia SNOMED Code(s): 88076637, 149561051 ICD Code: R00.1 - BRADYCARDIA, UNSPECIFIED Status: Acute Current Visit: Yes (2) Fall in elderly patient SNOMED Code(s): 099393077 ICD Code: R29.6 - REPEATED FALLS Status: Acute Current Visit: Yes (3) Alzheimer's dementia without behavioral disturbance SNOMED Code(s): 18686106 ICD Code: G30.9 - ALZHEIMER'S DISEASE, UNSPECIFIED; F02.80 - DEMENTIA IN OTH DISEASES CLASSD ELSWHR W/O BEHAVRL DISTURB Status: Chronic Current Visit: Yes Qualifiers: Alzheimer's disease onset: late-onset Qualified Code(s): G30.1 - Alzheimer' s disease with late onset; F02.80 - Dementia in other diseases classified elsewhere without behavioral disturbance - Patient Summary/Data Consults: Consultations 01/09/18 15:27 Consult to Physician [CONS] Routine Consulting Provider: Martell Sharp Call Completed to Consulting Physician: Yes Reason for Consult: bradycardia Person Notified: RW Date Notified: 01/09/18 Special Instructions: probable pacemaker insertion tomorrow Hospital Course: Marielena presented to the emergency room [facility]. Workup in the emergency room noted severe bradycardia with heart rates in the 30s. She did receive several doses of atropine with temporary improvement in her heart rate up to the 60s. Laboratory studies were unremarkable. Imaging of the brain and neck did not reveal injuries related to her fall which was not witnessed. Thyroid testing was acceptable. She is not on any rate slowing medications. The jail reports a long-standing history of bradycardia but previously the family had not been interested in pacemaker placement. She was admitted to the intensive care unit for cardiac monitoring. We did discuss the possibility of pacemaker placement and family was on board with having this done. They did feel that this would improve her quality of life that she cannot currently walk more than a very short distance before she collapses, likely related to her long-standing bradycardia at the time of admission to the intensive care unit her heart rate was in the 60s and low 70s. Overnight her heart rate returned to the 30s and remained there overnight. The morning after admission she remains in a sinus bradycardia with a rate in the mid to upper 30s. She has been lethargic since her heart rate decreased from the 70s down to the 30s. With a presumptive diagnosis of sick sinus syndrome a permanent pacemaker was attempted to be placed. Unfortunately the ventricular lead could not be seated. Even after multiple attempts the lead was unable to be seated in the ventricular wall. The procedure was abandoned after multiple attempts. She did receive 1 unit of blood during the procedure for approximately 250 mL of blood loss around the instrument sheath. She did have an episode of hypotension towards the end of the surgery and this responded to a dose of ephedrine. She has been stable postoperatively. Dr. Sharp did talk to [facility] in [place] and transfer was recommended for cardiology evaluation and consideration for a permanent pacemaker placement there with more advanced equipment. She'll be transferred by ambulance. The benefits outweigh the risks of transfer at this time. She is stable for ground transfer at this time. - Patient Instructions Diet: NPO Activity: Bedrest Other/Special Instructions: Transfer to [facility] in [place] for permanent pacemaker placement - Discharge Plan Home Medications: Home Meds Levothyroxine Sodium [Synthroid] 75 mcg PO DAILY 12/30/14 [History] Acetaminophen [Tylenol] 650 mg PO Q4H 01/16/17 [History] Sennosides [Senna] 2 tab PO BID PRN 01/16/17 [History] Patient Handouts: Bradycardia, Adult Referrals: Warren Cardenas MD [Primary Care Provider] - (Follow-up as needed after the hospital stay) - Discharge Summary/Plan Comment DC Time >30 min.: Yes (transfer to acute hospital ) - Patient Data Vitals - Most Recent: Last Vital Signs Temp 36.9 C 01/10/18 07:59 Pulse 38 L 01/10/18 07:59 Resp 20 01/10/18 07:59 BP 102/49 L 01/10/18 07:59 Pulse Ox 96 01/10/18 07:59 Weight - Most Recent: 58.684 kg I&O - Last 24 hours: Intake & Output 01/09/18 01/10/18 01/10/18 22:59 06:59 14:59 Intake Total 380 Balance 380 Lab Results - Last 24 hrs: Laboratory Results - last 24 hr 01/09/18 01/09/18 01/09/18 Range/Units 13:30 13:35 15:25 WBC (4.5-11.0) K/uL RBC (3.30-5.50) M/uL Hgb (12.0-15.0) g/dL Hct (36.0-48.0) % MCV (80-98) fL MCH (27-31) pg MCHC (32-36) % Plt Count (150-400) K/uL Sodium (140-148) mmol/L Potassium (3.6-5.2) mmol/L Chloride (100-108) mmol/L Carbon Dioxide (21-32) mmol/L Anion Gap (5.0-14.0) mmol/L BUN (7-18) mg/dL Creatinine (0.6-1.0) mg/dL Est Cr Clr Drug Dosing mL/min Estimated GFR (MDRD) (>60) Glucose (74-106) mg/dL Calcium (8.5-10.1) mg/dL Troponin I < 0.017 (0.000-0.056) ng/mL Free T4 1.10 (0.76-1.46) ng/dL TSH, Ultra Sensitive 4.211 H (0.358-3.740) uIU/mL Blood Type Gel Antibody Screen Crossmatch 01/10/18 01/10/18 01/10/18 Range/Units 04:56 04:56 09:02 WBC 7.6 (4.5-11.0) K/uL RBC 4.28 (3.30-5.50) M/uL Hgb 13.0 (12.0-15.0) g/dL Hct 39.8 (36.0-48.0) % MCV 93 (80-98) fL MCH 30 (27-31) pg MCHC 33 (32-36) % Plt Count 121 L (150-400) K/uL Sodium 138 L (140-148) mmol/L Potassium 4.2 (3.6-5.2) mmol/L Chloride 107 (100-108) mmol/L Carbon Dioxide 25 (21-32) mmol/L Anion Gap 10.2 (5.0-14.0) mmol/L BUN 17 (7-18) mg/dL Creatinine 0.8 (0.6-1.0) mg/dL Est Cr Clr Drug Dosing 43.30 mL/min Estimated GFR (MDRD) > 60 (>60) Glucose 100 (74-106) mg/dL Calcium 8.8 (8.5-10.1) mg/dL Troponin I (0.000-0.056) ng/mL Free T4 (0.76-1.46) ng/dL TSH, Ultra Sensitive (0.358-3.740) uIU/mL Blood Type A POSITIVE Gel Antibody Screen Negative Crossmatch See Detail Med Orders - Current: Current Medications Acetaminophen (Tylenol) 650 mg PO QID [facility] Last Admin: 01/10/18 06:28 Dose: Not Given Sodium Chloride (Normal Saline) 1,000 mls @ 100 mls/hr IV ASDIRECTED [facility] Levothyroxine Sodium (Levothyroxine) 75 mcg PO DAILY@0730 [facility] Melatonin (Melatonin) 9 mg PO BEDTIME [facility] Last Admin: 01/09/18 20:25 Dose: 9 mg Ondansetron HCl (Zofran Odt) 4 mg PO Q6H PRN PRN Reason: Nausea able to take PO Polyethylene Glycol (Miralax) 17 gm PO DAILY PRN PRN Reason: Constipation Senna (Senna) 17.2 mg PO BID PRN PRN Reason: Constipation Discontinued Medications Atropine Sulfate (Atropine 0.1 Mg/Ml) 0.5 mg IVPUSH ONETIME ONE Stop: 01/09/18 12:34 Last Admin: 01/09/18 12:46 Dose: 0.5 mg Atropine Sulfate (Atropine 0.1 Mg/Ml) 0.5 mg IVPUSH ONETIME ONE Stop: 01/09/18 12:50 Last Admin: 01/09/18 12:53 Dose: 0.5 mg Atropine Sulfate (Atropine 0.1 Mg/Ml) 0.5 mg IVPUSH ONETIME ONE Stop: 01/09/18 13:02 Last Admin: 01/09/18 13:09 Dose: 0.5 mg Bupivacaine HCl (Marcaine 0.5%) Confirm Administered Dose 50 ml .ROUTE .STK-MED ONE Stop: 01/10/18 09:32 Cefazolin Sodium (Ancef) Confirm Administered Dose 1 gm .ROUTE .STK-MED ONE Stop: 01/10/18 10:23 Ephedrine Sulfate (Ephedrine Sulfate) Confirm Administered Dose 50 mg .ROUTE .STK-MED ONE Stop: 01/10/18 11:40 Fentanyl (Sublimaze) Confirm Administered Dose 100 mcg .ROUTE .STK-MED ONE Stop: 01/10/18 09:42 Lactated Ringer's (Ringers, Lactated) 1,000 mls @ 100 mls/hr IV ASDIRECTED [facility] Last Admin: 01/09/18 12:46 Dose: 100 mls/hr Sodium Chloride (Normal Saline) Confirm Administered Dose 500 mls @ as directed .ROUTE .STK-MED ONE Stop: 01/10/18 11:24 Lidocaine/Epinephrine (Xylocaine 1% With Epinephrine 1:100,000) Confirm Administered Dose 50 ml .ROUTE .STK-MED ONE Stop: 01/10/18 09:32 Propofol (Diprivan 20 Ml) Confirm Administered Dose 200 mg .ROUTE .STK-MED ONE Stop: 01/10/18 09:42 - Exam Quality Assessment: Reports: Supplemental Oxygen General: Reports: Alert, Cooperative, No Acute Distress. Denies: Oriented Neck: Reports: Supple Lungs: Reports: Normal Respiratory Effort Cardiovascular: Reports: Regular Rhythm, Bradycardia GI/Abdominal Exam: No Distention Extremities: No Pedal Edema Psy/Mental Status: Reports: Alert *Q Meaningful Use (DIS) - VTE *Q VTE Pharmacological Contraindications *Q: Patient Scheduled Surgery
--- NOTE | 2018-01-12 09:52 | OR ---
DATE OF PROCEDURE: 01/10/2018 PROCEDURE: Attempted pacemaker. FINDINGS: Inability to advance the wire into the distal ventricle. ANESTHESIA: MAC/Local. INDICATIONS: Complete heart block. This is an 82-year-old female prior to surgery. The risks, benefits, alternatives, and limitations were explained to the patient and family including infection, bleeding, injury to cardiac or vascular structures, requirement for left and right placement and the possibility of inadvertent placement were all explained to the patient among other risks and they understand these. I explained the patient and family, they understood all these risks and wished to proceed. PROCEDURE IN DETAIL: The patient was placed in supine position in a head-down position. A double stick maneuver was performed. The left subclavian vein was accessed twice on the first pass without difficulty. This was accessed using a micropuncture needle kit, was then exchanged for a 35,000th wire and then exchanged for a kit wire. All this was done under fluoroscopic guidance. The ventricular lead was able to be advanced. Very mild difficulty passing through the valve. This was then attempted to be seated in the distal aspect of the right ventricle. Unfortunately, due to technical reasons, the lead could not be passed into the distal aspect of the ventricle and kept deviating towards the septum. Different wires of different angularity were also used attempting to work around this problem. The lead was also screwed in in the proximal aspects and attempts to get good impedance and resistance. Unfortunately, this was not amenable to an acceptable placement. After a reasonable amount of time, it was determined that the this lead would not be able to be placed in the ventricle, and the procedure was then terminated. All sheath and device were then removed. Direct pressure was held for 10 minutes. Dressings were applied. Of note, the patient tolerated the procedure well and the patient will be sent to a higher level of care for further evaluation of pacemaker placement. Martell Sharp MD /[id number]
--- NOTE | 2018-01-12 09:58 | CR ---
Chest 1V Frontal HISTORY: hypoxia COMPARISON: 01/16/2017 FINDINGS: There is generalized cardiomegaly. Superior pulmonary vasculature is prominent. Probable interstitial edema with Cristopher B-lines is seen bilaterally. No definite pleural fluid can be identified. Remainde r the exam is unchanged. IMPRESSION: Findings most compatible with acute CHF. Recommend clinical correlation and follow-up.
== END 2018-01-10 12:35 | DRG 310 ==
LOC: JP.ED 11:49 → JP.ICU 13:54
PROVIDERS: ADMIT Internal Medicine; ATTEND Internal Medicine
DX: R00.1 Bradycardia, unspecified (principal); G30.9 Alzheimer's disease, unspecified; G30.1 Alzheimer's disease with late onset; M54.2 Cervicalgia; I10 Essential (primary) hypertension; K21.9 Gastro-esophageal reflux disease without esophagitis; E11.9 Type 2 diabetes mellitus without complications; Z88.8 Allergy status to other drugs, medicaments and biological substances; Z79.899 Other long term (current) drug therapy; F02.80 Dementia in other diseases classified elsewhere, unspecified severity, without behavioral disturbance, psychotic disturbance, mood disturbance, and anxiety; Y93.9 Activity, unspecified; W18.30XA Fall on same level, unspecified, initial encounter; Y92.129 Unspecified place in nursing home as the place of occurrence of the external cause
CPT/HCPCS: 36415; 70450 ×2; 72125 ×2; 80048; 84443; 84484 ×2; 85027; 93005; 96361; 96374; 99285; J0461 ×3; J7120; 36430; 71045; 71045-26; 84439; 86850; 86900; 86901; 86920; 86922; A9270-GY; C1894; C1898; J0690; J2704; J3010; J7040; P9016